=== PATIENT | male | born 1945 | race Hispanic/Latino ===

== ENCOUNTER 2019-03-21 05:13 | Observation (INO) | payer MEDICARE, OTHER ==
[2019-03-14 11:11] LABS: BASOPHILS % 0.6 % (0.0-1.0); EOSINOPHILS # (AUTO) 0.2 (0.0-0.4); EOSINOPHILS % 2.4 % (0.0-6.0); HEMATOCRIT 32.5 % (38.2-49.6); HEMOGLOBIN 10.6 g/dL (14.0-18.0); LYMPHOCYTES # (AUTO) 1.1 (1.0-3.2); LYMPHOCYTES % 16.7 % (18.0-39.1); MEAN CORPUSCULAR HEMOGLOBIN 29.8 pg (28-32); MEAN CORPUSCULAR HGB CONC 32.6 g/dL (31-35); MEAN CORPUSCULAR VOLUME 91.3 fL (81-99); MONOCYTES # (AUTO) 0.6 (0.2-0.8); NEUTROPHILS # (AUTO) 4.7 (2.1-6.9); NEUTROPHILS % 70.8 % (38.7-80.0); PLATELET COUNT 273 x10e3/uL (140-360); RED BLOOD COUNT 3.56 x10e6/uL (4.3-5.7)
[2019-03-14 11:20] LABS: ALANINE AMINOTRANSFERASE 12 IU/L (0-55); ALBUMIN/GLOBULIN RATIO 0.8 (0.8-2.0); ALKALINE PHOSPHATASE 71 IU/L (40-150); ANION GAP 9.9 mmol/L (8-16); BLOOD UREA NITROGEN 16 mg/dL (7-26); BUN/CREATININE RATIO 18 (6-25); CALCIUM 9.6 mg/dL (8.4-10.2); CARBON DIOXIDE 28 mmol/L (22-29); CHLORIDE 100 mmol/L (98-107); CREATININE, SERUM 0.91 mg/dL (0.72-1.25); EST GLOMERULAR FILTRATION RATE > 60 ML/MIN (60-); GLUCOSE 103 mg/dL (74-118); POTASSIUM 3.9 mmol/L (3.5-5.1); SODIUM 134 mmol/L (136-145)
--- NOTE | 2019-03-14 11:22 | Diagnostic Imaging Report ---
EXAMINATION: CHEST 2 VIEWS INDICATION: Pre-admit. COMPARISON: None FINDINGS: TUBES and LINES: None. LUNGS: Lungs are moderately inflated. Lungs are clear. There is no evidence of pneumonia or pulmonary edema. PLEURA: No pleural effusion or pneumothorax. HEART AND MEDIASTINUM: The cardiomediastinal silhouette is unremarkable. Tortuous thoracic aorta with atherosclerotic calcifications. BONES AND SOFT TISSUES: Possible mild loss of vertebral body height in a lower thoracic vertebral body. UPPER ABDOMEN: No free air under the diaphragm. IMPRESSION: Clear lungs. Possible age-indeterminate mild compression deformity in a lower thoracic vertebral body. Suggest correlation for point tenderness at this location. Signed by: Dr. Anibal Graves MD on 03/14/2019 11:18 AM
[~2019-03-21] VITALS: Ht 170.2 cm; Wt 69.7 kg
[~2019-03-21 05:13] MED LIST: ATORVASTATIN CA20 MG PO; DIOVAN80 MG PO
--- OUTSIDE RECORDS SUMMARY | 2019-03-21 05:16 | XMS REPORT | Summary of Care ---
Author Author Roopa Hernandez Unknown Address [facility] Phone Unavailable Care Team Providers Care Supervisor Liquefaction Name Role Phone NIRMALA Douglas, BIN Unavailable Unavailable BIN SILVESTRE MD Unavailable Unavailable ELIAZAR Douglas, DEJON Unavailable Unavailable Unavailable Unavailable Functional Status Name Dates Details Functional status health issues are not documented Status: Name Dates Details Cognitive status health issues are not documented Status: Problems Name Dates Details Allergic rhinitis (477.9, J30.9) Status: Active Actinic keratosis (702.0, L57.0) Status: Active Influenza vaccine needed (V04.81, Z23) Status: Active Screening, lipid (V77.91, Z13.220) Status: Active Colon cancer screening (V76.51, Z12.11) Status: Active Screening PSA (prostate specific antigen) (V76.44, Z12.5) Status: Active Urine frequency (788.41, R35.0) Status: Active Erectile dysfunction (607.84, N52.9) Status: Active Prostate enlargement (600.00, N40.0) Status: Active Benign prostatic hypertrophy (BPH) with nocturia (600.01, N40.1) Status: Active Dysphagia (787.20, R13.10) Status: Active Colonoscopy refused (V64.2, Z53.20) Status: Active Need for influenza vaccination (V04.81, Z23) Status: Active Umbilical hernia without obstruction and without gangrene (553.1, K42.9) Status: Active Cough (786.2, R05) Status: Active Abnormal glucose (790.29, R73.09) Status: Active BMI (body mass index) 20.0-29.9 Status: Active Lump of skin of right upper extremity (782.2, R22.31) Status: Active Benign essential hypertension (401.1, I10) Status: Active Bilateral hydronephrosis (591, N13.30) Status: Active 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, N32.0) Status: Active CKD (chronic kidney disease), stage III (585.3, N18.3) Status: Active Dyslipidemia (272.4, E78.5) Status: Active Encounter for mini-mental status examination Status: Active Advance directive discussed with patient (V65.49, Z71.89) Status: Active Depression screen (V79.0, Z13.31) Status: Active Glaucoma screening (V80.1, Z13.5) Status: Active Risk for falls (V15.88, Z91.81) Status: Active Medications Name Dates Details Aspirin EC 325 MG Oral Tablet Delayed Release TAKE 1 TABLET DAILY SATTAR M.D., BIN * Start : 09-Mar-2016 Active Atorvastatin Calcium 20 MG Oral Tablet TAKE ONE TABLET BY MOUTH EVERY NIGHT AT BEDTIME * Quantity: 90 Refills: 1 SATTAR M.D., BIN * Start : 09-Mar-2016 Active Tdap (Adacel) IM X 1 * Quantity: 1 Refills: 0 SATTAR M.D., BIN * Start : 09-Mar-2018 Active 0.5 ML Syringe Shingrix 50 MCG Intramuscular Suspension Reconstituted IM: 0.5 mL 2-dose series at 0 and 2 to 6 months * Quantity: 1 Refills: 1 SATTAR M.D., BIN * Start : 09-Mar-2018 Active Valsartan 40 MG Oral Tablet take 1/2 tablet by mouth daily * Quantity: 45 Refills: 0 SATTAR M.D., BIN * Start : 01-Feb-2019 Active Allergies and Adverse Reactions Name Dates Details lisinopril (Adverse Event) Reaction: Cough Status: Active Past Medical History Name Dates Details History of Acute recurrent sinusitis (461.9, J01.91) Status: Resolved History of Acute upper respiratory infection (465.9, J06.9) Status: Resolved Procedures Procedure Dates Details [[facility]] BASIC METABOLIC PANEL W/EGFR Date: 11-Mar-2019 History of Hernia Repair Completed History of Gallbladder Surgery Completed History of Cholecystectomy Laparoscopic Completed Immunization Name Dates Details Influenza Lot #: [id number] on: 12-Nov-2014 Fluzone Quadrivalent 0.5 ML Intramuscular Suspension Lot #: [id number] on: 10-Feb-2016 Prevnar 13 Intramuscular Suspension Lot #: [id number] on: 10-Feb-2016 Fluzone Quadrivalent 0.5 ML Intramuscular Suspension on: 16-Aug-2016 Pneumovax 23 25 MCG/0.5ML Injection Injectable Lot #: [id number] on: 04-Apr-2017 Fluzone High-Dose 0.5 ML Intramuscular Suspension Prefilled Syringe Lot #: [id number] on: 23-Oct-2017 Fluzone High-Dose 0.5 ML Intramuscular Suspension Prefilled Syringe Lot #: [id number] on: 10-Sep-2018 Family History Name Dates Details Family history of Denial Of Any Significant Medical History Status: Active Name Dates Details Family history of Cancer Status: Active Social History Name Dates Details - Status: Name Dates Details Never smoker Vital Signs Date Test Result Details :53 Physical Findings 0 Status: Comments: PHQ-9 Adult Depression Screening :09 BP Systolic 99 mm[Hg] Status: Comments: Location: LUE; Position: Sitting BP Diastolic 65 mm[Hg] Status: Comments: Location: LUE; Position: Sitting Height 67 in Status: Weight 156.3125 lb Status: Body Mass Index Calculated 24.48 kg/m2 Status: Body Surface Area Calculated 1.82 m2 Status: Temperature 97.9 f Status: Comments: Method: Temporal Heart Rate 72 /min Status: Respiration Rate 16 /min Status: Results Date Description Value Details :41 [[facility]] BASIC METABOLIC PANEL W/EGFR Comments: REPORT COMMENT:FASTING:YES GLUCOSE 102 mg/dl (Above high threshold) Range: 65-99 Comments: Fasting reference interval For someone without known diabetes, a glucose valuebetween 100 and 125 mg/dL is consistent withprediabetes and should be confirmed with afollow-up test. UREA NITROGEN (BUN) 13 mg/dl (Normal) Range: 7-25 CREATININE 1.03 mg/dl (Normal) Range: 0.70-1.18 Comments: For patients >49 years of age, the reference limitfor Creatinine is approximately 13% higher for peopleidentified as -[place]. eGFR NON- 72 {ML/MIN/1.7} (Normal) Range: > OR=60 eGFR 83 {ML/MIN/1.7} (Normal) Range: > OR=60 BUN/CREATININE RATIO NOT APPLICABLE {CALC} Range: 6-22 SODIUM 133 mmol/L (Below low threshold) Range: 135-146 POTASSIUM 4.3 mmol/L (Normal) Range: 3.5-5.3 CHLORIDE 100 mmol/L (Normal) Range: 98-110 CARBON DIOXIDE 27 mmol/L (Normal) Range: 20-32 CALCIUM 9.1 mg/dl (Normal) Range: 8.6-10.3 Plan of Care Name Dates Details Planned Observations Planned Goals not documented Interventions Provided Medication Changes* Atorvastatin Calcium 20 MG Oral Tablet - Renew * Valsartan 40 MG Oral Tablet - Renew Labs/Procedures/Imaging* [[facility]] BASIC METABOLIC PANEL W/EGFR; To Be Done: 11 Mar 2019 Follow-ups/Referrals* Ophthalmology Referral; To Be Done: 11 Mar 2019 Plan* reduce valsartan to 1/2 tab of 40 mg * repeat bmp in 1 month * Low salt, low fat, high fiber, healthy diet * Monitor blood pressure at home, bring log to next visit * If blood pressure persistently over 140/90 or less then 100/50 or symptomatic, please seek early or ER care * Please seek early care if not getting better or getting worse or new change in condition. * pls keep other appt as rahel * Return to clinic in 6 months, sooner if needed * Please seek early care if not getting better or getting worse or new change in condition * Please call us back if you don't hear from the office about your labs, imaging or referral in a week. Instructions Name Dates Details Instructions not documented Encounters Appointment; BIN SILVESTRE M.D. Encounter Diagnosis: Problem not documented On: 04-Apr-2017 8:30 Appointment; BIN SILVESTRE M.D. Encounter Diagnosis: Problem not documented On: 20-Apr-2017 8:00 Appointment; BIN SILVESTRE M.D. Encounter Diagnosis: Problem not documented On: 23-Oct-2017 8:30 Appointment; BNI SILVESTRE M.D. Encounter Diagnosis: Problem not documented On: 08-Dec-2017 8:00 Appointment; BIN SILVESTRE M.D. Encounter Diagnosis: Problem not documented On: 09-Mar-2018 8:00 Appointment; BIN SILVESTRE M.D. Encounter Diagnosis: Problem not documented On: 10-Sep-2018 8:00 Appointment; BIN SILVESTRE M.D. Encounter Diagnosis: Problem not documented On: 10-Sep-2018 8:00 Appointment; BIN SILEVSTRE M.D. Encounter Diagnosis: Problem not documented On: 03-Dec-2018 8:15 Appointment; BIN SILVESTRE M.D. Encounter Diagnosis: Problem not documented On: 11-Mar-2019 8:00
--- OUTSIDE RECORDS SUMMARY | 2019-03-21 05:16 | XMS REPORT ---
Author Author [facility] Address Unknown Phone Unavailable Care Team Providers Care Marketing Associate Name Role Phone KANNAN KEATING Unavailable Unavailable Problems This patient has no known problems. Allergies, Adverse Reactions, Alerts This patient has no known allergies or adverse reactions. Medications This patient has no known medications. Results Test Description Test Time Test Comments Text Results Atomic Results Result Comments CHEST 2 VIEWS 2019-03-14 11:16:00 [place] [address] Patient Name: JESÚS ROBERTS MR #: [id number] : 1945 Age/Sex: 73/M Req #: [id number] Adm Physician: Ordered by: KANNAN KEATING MD Report #: [id number] Location: OR Room/Bed: Procedure: [id number] DX/CHEST 2 VIEWS Exam Date: Exam Time: REPORT STATUS: Signed EXAMINATION: CHEST 2 VIEWS INDICATION: Pre-admit. COMPARISON: None FINDINGS: TUBES and LINES: None. LUNGS: Lungs are moderately inflated. Lungs are clear. There is no evidence of pneumonia or pulmonary edema. PLEURA: No pleural effusion or pneumothorax. HEART AND MEDIASTINUM: The cardiomediastinal silhouette is unremarkable. Tortuous thoracic aorta with atherosclerotic calcifications. BONES AND SOFT TISSUES: Possible mild loss of vertebral body height in a lower thoracic vertebral body. UPPER ABDOMEN: No free air under the diaphragm. IMPRESSION: Clear lungs. Possible age-indeterminate mild compression deformity in a lower thoracic vertebral body. Suggest correlation for point tenderness at this location. Signed by: Dr. Gus Rosas MD on 03/14/2019 11:18 AM Dictated By: GUS ROSAS MD [id number] Transcribed By: CHARO on 03/14/19 1118 COPY TO: KANNAN KEATING MD
[2019-03-21] MEDS ORDERED: CEFAZOLIN SOD 2 GM/D5W 50ML 50 ML IV ONE (06:11)
[2019-03-21] MEDS ORDERED: IOPAMIDOL 610MG/1ML 300 MG/ML VIAL IV ONE (06:26)
[2019-03-21] MEDS ORDERED: BELLADONNA/OPIUM 60 MG SUPP PR ONE (06:26)
--- NOTE | 2019-03-21 09:50 | NUR ---
report received. patient to arrive on stretcher alert and oriented with at bedside.
[2019-03-21 10:00] VITALS: BP 133/68
--- NOTE | 2019-03-21 10:00 | NUR ---
patient arrived alert and oriented, call gonzalez within reach and bed in lowest position. at bedside. anne in place and patient in no distress.
[2019-03-21] MEDS ORDERED: WATER STERILE FOR IRRIG 1000 ML PLCT IR PRN ×2 (10:30→10:45)
[2019-03-21] MEDS ORDERED: DEXTROSE 5%/0.45% SOD CHL 1,000 ML IV ONE ×2 (10:30→18:20)
[2019-03-21] MEDS ORDERED: BELLADONNA/OPIUM 30 MG SUPP RC PRN (10:30)
[2019-03-21] MEDS ORDERED: TRAMADOL HCL 50 MG TAB PO PRN ×4 (10:30→10:45)
[2019-03-21] MEDS ORDERED: PNEUMOCOCCAL VACCINE POLYVALENT 23 MCG/0.5 ML VIAL IM SCH (10:48)
--- NOTE | 2019-03-21 14:20 | NUR ---
RECEIVED REPORT FROM DEVAN IN OBS AWAITING FOR PT TO ARRIVE TO FLOOR
--- NOTE | 2019-03-21 14:52 | NUR ---
RECEIVED PT TO FLOOR AA0X3 PT IS IN NO S.S OF DISTRESS FAMILY IS AT BEDSIDE PT IS ON FLUIDS , IV SITE CLEAN AND DRY PT HAS A MCKEON DRAINING PINK TINGED URINE. PRN IRRIGATION IS ON ORDERS WILL MONITOR PT CLOSELY, CALL LIGHT IS WITHIN EASY REACH, INSTRUCTED TO CALL FOR ASSISTANCE IF NEEDED
[2019-03-21] MEDS: VALSARTAN 80 MG TAB PO SCH (16:07)
[2019-03-21 16:18] VITALS: BP 110/67
--- NOTE | 2019-03-21 17:29 | Operative Report ---
DATE OF PROCEDURE: 03/21/2019 SURGEON: Bebo Moore MD PREOPERATIVE DIAGNOSIS: Urinary retention, chronic. POSTOPERATIVE DIAGNOSIS: Urinary retention, chronic. OPERATION PERFORMED: Cystoscopy and transurethral resection of the prostate with bipolar energy. ANESTHESIOLOGIST: Staff. ANESTHESIA: General. ESTIMATED BLOOD LOSS: 100 mL to 125 mL. COUNTS: Sponge, needle count and instrument count was correct. FINDINGS: Normal urethra. Very extremely large prostate with severe trabeculation of the bladder with multiple saccules and cellules. The patient had an indwelling Dior catheter. He had been in chronic retention and has had, by CT scan, bilateral hydroureteronephrosis of chronic obstruction. PROCEDURE IN DETAIL: With the patient under satisfactory general anesthesia, the patient was placed in the supine position on the operating table. Legs were placed in stirrups. Genitalia was then prepped with pHisoHex solution and draped in usual manner. A time-out was obtained. All agreed with the procedure. At this point, cystoscopy was performed, findings as dictated above. The continuous-flow resectoscope with bipolar energy was used for prostatic resection and hemostasis. Resection was started with interventional component first taking care that the ureteral orifices and the trigone are left intact. Resection was carried then from bladder neck to mid urethra, left side was done first, in fact most of the operation was done on the left side since the prostate was so large. After doing the second step from mid prostate to verumontanum, the [employer] evacuator was used to remove all prostatic tissue from the bladder. The cutting loop was then replaced with a button electrode and hemostasis was obtained. At this point, checking inside the bladder, there were no prostatic chips within the bladder itself, Trigone was noted to be intact as well as the ureteral orifices. At this point, the instruments were removed and replaced with a 22-Polish Dior catheter, which was left indwelling. The bladder was irrigated until the return was clear. The patient was then taken to recovery room in satisfactory condition. I discussed the case with the afterwards. The patient will be staying overnight and will be discharged in the morning if he is stable and meets discharge criteria. DISCHARGE INSTRUCTION: He was observed overnight. If he had to stay an extra night, he will be admitted to the hospital and then a separate dictation will be done. He went home on his medications, which include valsartan and atorvastatin. He left with a leg bag and overnight bag. He was given Keflex and tramadol and we will be following him in the office on Monday of next week, which would be four days after surgery. At that time, we will remove the catheter. Preoperatively, the patient, the and I had a long discussion regarding his status. Apparently, either there was a misunderstanding, poor communication or the patient and the forgot exactly what we had discussed in the office. Again, we had a long discussion in the preop area regarding the operation, regarding the two-staged TURP that they decided to have done. I have recommended doing an open procedure to remove the entire prostate in one sitting. They did not like to be in the hospital longer than a day. He did not like to be under anesthesia for a long period of time. He did want to wear the catheter for another two weeks. Since I re-opened up the prostatic capsule that will be what will be required to do. I reminded them that we had discussed this, that we discussed that he was going to stay overnight in the hospital, that he will definitely have severe urgency maybe even incontinence because he has been in retention for so long that he had damaged his bladder muscle. I discussed all that with them again. I had discussed it in the office and for some reason, the patient and the did not have a clear picture. I even offered them to cancel the case so that they can see a second opinion, but they requested that I did the operation today. MD YEN Sanderson/MODL /[id number]
[2019-03-21] MEDS ORDERED: LIDOCAINE HCL 2% LOCAL INJ 5 ML SDV VIAL INJ ONE (18:04)
[2019-03-21] MEDS ORDERED: EPHEDRINE SULFATE INJ 50 MG/10 ML SYR ONE (18:04)
[2019-03-21] MEDS ORDERED: SEVOFLURANE INHAL SOLN 250 ML PEN BTL ONE (18:04)
[2019-03-21] MEDS ORDERED: ONDANSETRON HCL INJ 2MG/ML 2ML 2 MG/ML VIAL ONE (18:04)
[2019-03-21] MEDS ORDERED: DEXAMETHASONE SOD PHOS INJ 4 MG/ML VIAL ONE (18:04)
[2019-03-21] MEDS ORDERED: PROPOFOL IV EMULSION 10 MG/ML 20 ML VIAL ONE (18:04)
[2019-03-21] MEDS ORDERED: FENTANYL CITRATE/PF 100MCG/2 ML INJ ONE (18:32)
--- NOTE | 2019-03-21 18:55 | NUR ---
RECEIVED PATIENT AAOX3, RR EVEN AND UNLABORED, DENIES PAIN. UP IN BEDSIDE RECLINER, AT BEDSIDE. MCKEON DRAINING PINK URINE,NO CLOTS, TO GRAVITY. CALL LIGHT WITHIN REACH. INSTRUCTED TO CALL FOR ASSISTANCE NEEDED, PATIENT VERBALIZED UNDERSTANDING.
[2019-03-21 19:40] VITALS: BP 111/59
[2019-03-21] MEDS ORDERED: ATORVASTATIN 20 MG TAB PO SCH (21:00)
[2019-03-21 21:18] VITALS: BP 111/59
[2019-03-22 00:05] VITALS: BP 99/56
[2019-03-22 03:48] VITALS: BP 114/67
--- NOTE | 2019-03-22 07:00 | NUR ---
BEDSIDE ROUNDS COMPLETE NO DISTRESS NOTED, UPDATED ON POC VOICED UNDERSTANDING, DENIES PAIN AT THIS TIME, MCKEON TO BSD WITH PINK URINE NOTED, NO OTHER CO VOICED CALL LIGHT IN REACH WILL CONTINUE TO MONITOR
[2019-03-22 08:30] VITALS: BP 131/72
[2019-03-22] MEDS: VALSARTAN 80 MG TAB PO SCH (08:30)
--- NOTE | 2019-03-22 08:31 | NUR ---
PT REFUSED DIOVAN 80MG STATES HE ONLY TAKES 20MG, DR KEATING NOTIFIED, OK TO GIVE WHAT PT TAKES AT HOME.
[2019-03-22 08:48] VITALS: BP 131/72
[2019-03-22] MEDS ORDERED: ULTRAM 50MG50 MG PO (09:05)
--- NOTE | 2019-03-22 09:08 | NUR ---
INFORMED PT OF PNEUMONIA VACCINE INDICATED, PT REFUSED STATES " HE NEEDS TO ASK HIS DOCTOR I CANT REMEMBER WHEN I HAD IT LAST" VACCINE NOT GIVEN
== END 2019-03-22 09:51 | disposition home or self-care (01) ==
LOC: OR 05:13 → PACU V 09:13 → IMCU 10:01 → MED/SURG 14:41
PROVIDERS: ADMIT Urology; ATTEND Urology
DX: N40.1 Benign prostatic hyperplasia with lower urinary tract symptoms (principal); R33.8 Other retention of urine; Z01.810 Encounter for preprocedural cardiovascular examination; Z01.812 Encounter for preprocedural laboratory examination; Z01.811 Encounter for preprocedural respiratory examination; N13.30 Unspecified hydronephrosis
CPT/HCPCS: 36415; 52601; 71046; 80053; 85025; 87086; 87186; 88305; 93005; C1758; G0378 ×2; J0690; J1100; J2001; J2405; J2704

== ENCOUNTER 2022-08-03 11:54 | Emergency (ER) | payer MEDICARE, OTHER ==
[~2022-08-03] VITALS: Ht 170.2 cm; Wt 69.4 kg
[~2022-08-03 11:54] MED LIST changes: +ULTRAM 50MG50 MG PO
[2022-08-03 12:26] LABS: BASOPHILS % 0.5 % (0.0-1.0); EOSINOPHILS # (AUTO) 0.1 (0.0-0.4); EOSINOPHILS % 0.8 % (0.0-6.0); HEMATOCRIT 39.4 % (38.2-49.6); HEMOGLOBIN 13.2 g/dL (14.0-18.0); LYMPHOCYTES # (AUTO) 0.9 (1.0-3.2); LYMPHOCYTES % 13.1 % (18.0-39.1); MEAN CORPUSCULAR HEMOGLOBIN 31.3 pg (28-32); MEAN CORPUSCULAR HGB CONC 33.5 g/dL (31-35); MEAN CORPUSCULAR VOLUME 93.4 fL (81-99); MONOCYTES # (AUTO) 0.5 (0.2-0.8); MONOCYTES % 6.8 % (4.4-11.3); NEUTROPHILS # (AUTO) 5.2 (2.1-6.9); NEUTROPHILS % 78.5 % (38.7-80.0); PLATELET COUNT 217 x10e3/uL (140-360); RED BLOOD COUNT 4.22 x10e6/uL (4.3-5.7); RED CELL DISTRIBUTION WIDTH 12.7 % (11.7-14.4)
[2022-08-03 12:53] LABS: ALBUMIN 3.8 g/dL (3.5-5.0); ALBUMIN/GLOBULIN RATIO 1.2 (0.8-2.0); ANION GAP 18.9 mmol/L (8-16); CREATININE, SERUM 1.04 mg/dL (0.72-1.25); POTASSIUM 3.9 mmol/L (3.5-5.1)
[2022-08-03] MEDS ORDERED: LIDOCAINE HCL (LTA) 4 ML SOLN ONE (13:04)
== END 2022-08-03 13:53 | disposition home or self-care (01) ==
LOC: ER 12:01
DX: R33.9 Retention of urine, unspecified (principal); N40.1 Benign prostatic hyperplasia with lower urinary tract symptoms; I10 Essential (primary) hypertension; E78.5 Hyperlipidemia, unspecified
CPT/HCPCS: 36415; 80053; 85025; 99283

== ENCOUNTER 2022-08-20 17:30 | Inpatient (IN) | payer MEDICARE ==
[~2022-08-20] VITALS: Ht 170.2 cm; Wt 72.6 kg
[2022-08-20 20:00] VITALS: BP 156/92
[2022-08-20] MEDS ORDERED: CLONIDINE HCL 0.1 MG TAB PO PRN (20:00)
[2022-08-20] MEDS ORDERED: ACETAMINOPHEN 325 MG TAB PO PRN (20:00)
[2022-08-20] MEDS ORDERED: ONDANSETRON HCL INJ 2MG/ML 2ML 2 MG/ML VIAL IV PRN (20:00)
[2022-08-20 21:00] VITALS: BP 143/84
[2022-08-20] MEDS ORDERED: SODIUM CHLORIDE 0.9% 1000ML 1,000 ML IV SCH (21:00)
[2022-08-20 21:49] VITALS: BP 143/84
[2022-08-20 23:00] VITALS: BP 112/57
[2022-08-21] VITALS (16 sets, daily range): BP systolic 117–141; BP diastolic 68–89
[2022-08-21 00:18] LABS: THYROID STIMULATING HORMONE 0.662 uIU/mL (0.350-4.940)
[2022-08-21 07:27] LABS: ANION GAP 15.6 mmol/L (8-16); CREATININE, SERUM 0.84 mg/dL (0.72-1.25); MAGNESIUM 1.9 MG/DL (1.3-2.1); PHOSPHORUS 2.3 MG/DL (2.3-4.7); POTASSIUM 3.6 mmol/L (3.5-5.1)
[2022-08-21 08:38] LABS: BLOOD UREA NITROGEN 12 mg/dL (7-26); GLUCOSE 111 mg/dL (74-118); OSMOLALITY,SERUM 263 mOsm/kg (278-305); SODIUM 131 mmol/L (136-145)
[2022-08-21] MEDS ORDERED: ZOLPIDEM TARTRATE 5 MG TAB PO PRN (09:15)
[2022-08-21] MEDS: DEXTROSE 5% 1,000 ML IV SCH ×2 (10:27→20:23)
[2022-08-21] MEDS ORDERED: DESMOPRESSIN ACETATE 4 MCG/ML VIAL IV ONE ×2 (10:30→17:30)
[2022-08-21] MEDS: VALSARTAN 80 MG TAB PO SCH (16:12)
[2022-08-21] MEDS: ATORVASTATIN 20 MG TAB PO SCH (20:34)
[2022-08-22] VITALS (8 sets, daily range): BP systolic 111–137; BP diastolic 65–93
[2022-08-22 05:56] LABS: BASOPHILS % 0.4 % (0.0-1.0); EOSINOPHILS # (AUTO) 0.1 (0.0-0.4); EOSINOPHILS % 1.4 % (0.0-6.0); HEMATOCRIT 34.7 % (38.2-49.6); HEMOGLOBIN 12.5 g/dL (14.0-18.0); LYMPHOCYTES # (AUTO) 1.3 (1.0-3.2); LYMPHOCYTES % 15.4 % (18.0-39.1); MEAN CORPUSCULAR HEMOGLOBIN 32.5 pg (28-32); MEAN CORPUSCULAR VOLUME 90.1 fL (81-99); MONOCYTES # (AUTO) 1.1 (0.2-0.8); MONOCYTES % 12.8 % (4.4-11.3); NEUTROPHILS # (AUTO) 5.8 (2.1-6.9); NEUTROPHILS % 69.6 % (38.7-80.0); PLATELET COUNT 169 x10e3/uL (140-360); RED BLOOD COUNT 3.85 x10e6/uL (4.3-5.7); RED CELL DISTRIBUTION WIDTH 11.6 % (11.7-14.4)
[2022-08-22 06:28] LABS: ALBUMIN/GLOBULIN RATIO 1.1 (0.8-2.0); ANION GAP 15.3 mmol/L (8-16); CALCIUM 8.4 mg/dL (8.4-10.2); CREATININE, SERUM 0.79 mg/dL (0.72-1.25); POTASSIUM 3.3 mmol/L (3.5-5.1)
[2022-08-22] MEDS: VALSARTAN 80 MG TAB PO SCH (08:38)
[2022-08-22] MEDS ORDERED: VALSARTAN 80 MG TAB PO SCH (09:00)
[2022-08-22] MEDS ORDERED: POTASSIUM CHLORIDE 20 MEQ TAB CR PO ONE (10:00)
[2022-08-22] MEDS ORDERED: ONDANSETRON HCL 4 MG ORAL DISINTEGRATING TAB PO PRN (16:00)
[2022-08-22 19:23] LABS: INR 0.94; PROTHROMBIN TIME 13.4 seconds (11.9-14.5)
[2022-08-22 19:24] LABS: PARTIAL THROMBOPLASTIN TIME 31.7 seconds (23.8-35.5)
[2022-08-22] MEDS: ATORVASTATIN 20 MG TAB PO SCH (21:09)
[2022-08-23] VITALS (7 sets, daily range): BP systolic 116–136; BP diastolic 69–102
[2022-08-23 06:20] LABS: ANION GAP 11.5 mmol/L (8-16); CALCIUM 8.4 mg/dL (8.4-10.2); CREATININE, SERUM 0.79 mg/dL (0.72-1.25); POTASSIUM 3.5 mmol/L (3.5-5.1)
[2022-08-23] MEDS: VALSARTAN 80 MG TAB PO SCH (09:23)
[2022-08-23] MEDS ORDERED: IOPAMIDOL 370 MG/ML 100 ML INFUS..BTL INJ ONE (12:46)
[2022-08-23] MEDS: ATORVASTATIN 20 MG TAB PO SCH (20:52)
[2022-08-24] VITALS (7 sets, daily range): BP systolic 101–141; BP diastolic 65–87
[2022-08-24 05:45] LABS: ANION GAP 12.9 mmol/L (8-16); CREATININE, SERUM 0.88 mg/dL (0.72-1.25); POTASSIUM 3.9 mmol/L (3.5-5.1)
[2022-08-24] MEDS: VALSARTAN 80 MG TAB PO SCH (09:27)
[2022-08-24] MEDS ORDERED: SODIUM CHLORIDE 0.9% 250ML 250 ML IV ONE (18:15)
[2022-08-24] MEDS: ATORVASTATIN 20 MG TAB PO SCH (21:51)
[2022-08-25] VITALS: BP 107/76
[2022-08-25 04:00] VITALS: BP 123/75
[2022-08-25 08:33] VITALS: BP 127/89
[2022-08-25] MEDS: VALSARTAN 80 MG TAB PO SCH (09:22)
[2022-08-25 09:43] VITALS: BP 127/89
[2022-08-25 11:23] VITALS: BP 145/79
[2022-08-25 20:00] VITALS: BP 121/77
[2022-08-25] MEDS: ATORVASTATIN 20 MG TAB PO SCH (21:10)
[2022-08-26] VITALS (7 sets, daily range): BP systolic 127–131; BP diastolic 71–86
[2022-08-26 06:04] LABS: ANION GAP 12.1 mmol/L (8-16); CALCIUM 8.7 mg/dL (8.4-10.2); CREATININE, SERUM 0.88 mg/dL (0.72-1.25); POTASSIUM 4.1 mmol/L (3.5-5.1)
[2022-08-26] MEDS ORDERED: OMEPRAZOLE40 MG PO (09:10)
[2022-08-26] MEDS ORDERED: IOPAMIDOL 300MG/ML 50ML INFUS..BTL IV ONE (13:43)
[2022-08-26] MEDS ORDERED: FENTANYL CITRATE/PF 100MCG/2 ML INJ ONE (15:02)
[2022-08-26] MEDS ORDERED: Morphine 10mg syringe 10 MG/ML INJ ONE (15:02)
[2022-08-26] MEDS ORDERED: EPHEDRINE SULFATE INJ 50 MG/ML VIAL ONE (16:03)
[2022-08-26] MEDS ORDERED: ONDANSETRON HCL INJ 2MG/ML 2ML 2 MG/ML VIAL IV PRN (17:15)
[2022-08-26] MEDS ORDERED: HYDROCODONE/APAP 5MG-325MG TAB PO PRN (17:15)
[2022-08-26] MEDS: CIPROFLOXACIN 500 MG TAB PO SCH (18:13)
[2022-08-26] MEDS: VALSARTAN 80 MG TAB PO SCH (18:14)
[2022-08-26] MEDS: DEXTROSE 5%/0.45% SOD CHL 1,000 ML IV SCH (18:16)
[2022-08-26] MEDS: ATORVASTATIN 20 MG TAB PO SCH (21:44)
[2022-08-27] VITALS: BP 122/70
[2022-08-27 04:00] VITALS: BP 121/70
[2022-08-27] MEDS: DEXTROSE 5%/0.45% SOD CHL 1,000 ML IV SCH (05:28)
[2022-08-27 07:49] VITALS: BP 132/70
[2022-08-27 07:50] VITALS: BP 132/78
[2022-08-27] MEDS: VALSARTAN 80 MG TAB PO SCH (09:22)
[2022-08-27] MEDS: CIPROFLOXACIN 500 MG TAB PO SCH (09:22)
[2022-08-27 11:54] VITALS: BP 125/76
[2022-08-27] MEDS ORDERED: ROCURONIUM BROMIDE 10 MG/ML 5ML VIAL IV ONE (14:30)
[2022-08-27] MEDS ORDERED: ONDANSETRON HCL INJ 2MG/ML 2ML 2 MG/ML VIAL IV ONE (14:30)
[2022-08-27] MEDS ORDERED: DEXAMETHASONE SOD PHOS INJ 4 MG/ML SDV IV ONE (14:30)
[2022-08-27] MEDS ORDERED: NEOSTIGMINE 1 MG/ML 10ML VIAL IV ONE (14:30)
[2022-08-27] MEDS ORDERED: PROPOFOL IV EMULSION 10 MG/ML 20 ML VIAL IV ONE (14:30)
[2022-08-27] MEDS ORDERED: SEVOFLURANE INHAL SOLN 250 ML PEN BTL INH ONE (14:30)
[2022-08-27] MEDS ORDERED: GLYCOPYRROLATE INJ 0.2 MG/ML VIAL IV ONE (14:30)
[2022-08-27] MEDS ORDERED: EPHEDRINE SULFATE INJ 50 MG/ML VIAL IV ONE (14:30)
[2022-08-27] MEDS ORDERED: LIDOCAINE HCL 2% LOCAL INJ 5 ML SDV VIAL INJ ONE (14:30)
[2022-08-27] MEDS ORDERED: POVIDONE IODINE 0.05% 0.05 % ML PO ONE (14:30)
== END 2022-08-27 14:31 | disposition home or self-care (01) | DRG 713 ==
LOC: ICU 17:30 → MED/SURG3 08-21 21:49
PROVIDERS: ADMIT Internal Medicine; ATTEND Internal Medicine
PROC: 0VB08ZZ Excision of Prostate, Via Natural or Artificial Opening Endoscopic (ICD-10-PCS; principal; 2022-08-26 14:08)
PROC: BT141ZZ Fluoroscopy of Kidneys, Ureters and Bladder using Low Osmolar Contrast (ICD-10-PCS; 2022-08-26 14:08)
DX: N40.1 Benign prostatic hyperplasia with lower urinary tract symptoms (principal); E87.1 Hypo-osmolality and hyponatremia; R31.0 Gross hematuria; R33.8 Other retention of urine; N50.0 Atrophy of testis; I10 Essential (primary) hypertension; E78.00 Pure hypercholesterolemia, unspecified; Z20.822 Contact with and (suspected) exposure to COVID-19; E78.5 Hyperlipidemia, unspecified
CPT/HCPCS: 36415; 74174; 74420; 80048; 80053; 82947; 83735; 83935; 84100; 84295; 84443; 84520; 85025; 85610; 85730; 86850; 86900; 86920; 88304; 88305; J0690; J1100; J2001; J2270; J2405; J2710; J3010; J7030; J7070; Q9967